=== PATIENT | female | born 2000 | race Caucasian/White ===

== ENCOUNTER 2019-02-13 11:23 | Emergency (ER) | payer MEDICAID ==
[~2019-02-13] VITALS: Ht 175.3 cm; Wt 76.2 kg
--- NOTE | 2019-02-13 11:23 | NUR ---
PT [facility] BLS TO ER BED 09
[2019-02-13 11:24] VITALS: BP 124/86
--- NOTE | 2019-02-13 11:27 | NUR ---
18 y/o female biba presenting with c/c of productive cough per pt blood clots and sore throat x3 days. pt complaints of no pain other than throat discomfort. Patient has not taken the flue shot and per patient boyfriend is sick at home. pt nka. no medical hx. no meds on regular basis. last oral intake yesterday, denies n/v/d. side rail x1.
--- NOTE | 2019-02-13 11:36 | NUR ---
DR. RASMUSSEN EVALUATING PT AT BEDSIDE
[2019-02-13 12:02] VITALS: BP 124/86
--- NOTE | 2019-02-13 12:02 | NUR ---
Patient discharged with v/s stable. Written and verbal after care instructions given and explained. Patient alert, oriented and verbalized understanding of instructions. Ambulatory with steady gait. All questions addressed prior to discharge. ID band removed. Patient advised to follow up with PMD. Rx of MOTRIN, PROMETHAZINE, AZITHROMYCIN given. Patient educated on indication of medication including possible reaction and side effects. Opportunity to ask questions provided and answered.
== END 2019-02-13 12:02 | disposition home or self-care (01) ==
LOC: MED 11:23
DX: J03.90 Acute tonsillitis, unspecified (principal); J06.9 Acute upper respiratory infection, unspecified
CPT/HCPCS: 99283